=== PATIENT | female | born 1955 | race Caucasian/White ===

== ENCOUNTER 2018-01-22 17:54 | Emergency (ER) | payer OTHER ==
--- NOTE | 2018-01-22 19:32 | ER Document Report ---
ED Medical Screen (RME) - General Chief Complaint: Abdominal Pain Stated Complaint: VOMITING, TROUBLE BREATHING Time Seen by Provider: 01/22/18 19:24 Notes: [age]-year-old female with history that sounds like chronic gastroesophageal reflux which she takes Pepcid for. She reports that she had a ham sandwich at 1 :30 PM today. At 4 PM she tried to eat supper and it felt like the food stuck in her distal esophageal region. She eventually vomited up the same food she is swallowed. Since then anything she tries to swallow comes back up including sips of water. I have greeted and performed a rapid initial assessment of this patient. A comprehensive ED assessment and evaluation of the patient, analysis of test results and completion of the medical decision making process will be conducted by additional ED providers. TRAVEL OUTSIDE OF THE [place] IN LAST 30 DAYS: No - Related Data Allergies/Adverse Reactions: No Known Drug Allergies Allergy (Unknown, Verified 09/04/13 11:54) SOME ORAL ANTIBIOTIC Allergy (Severe, Uncoded 09/04/13 10:55) RASH Past Medical History - Past Medical History Cardiac Medical History: Reports: Hx Hypertension Denies: Hx Coronary Artery Disease - HIGH CHOLESTEROL, Hx Heart Attack Pulmonary Medical History: Denies: Hx Asthma, Hx Bronchitis, Hx COPD, Hx Pneumonia Neurological Medical History: Denies: Hx Cerebrovascular Accident, Hx Seizures Musculoskeltal Medical History: Denies Hx Arthritis - Immunizations Hx Diphtheria, Pertussis, Tetanus Vaccination: No - UNK Physical Exam - Vital signs Vitals: Temp Pulse Resp BP Pulse Ox 98.3 F 103 H 16 148/68 H 99 01/22/18 18:37 01/22/18 18:37 01/22/18 18:37 01/22/18 18:37 01/22/18 18:37 Course - Vital Signs Vital signs: Temp Pulse Resp BP Pulse Ox 98.3 F 103 H 16 148/68 H 99 01/22/18 18:37 01/22/18 18:37 01/22/18 18:37 01/22/18 18:37 01/22/18 18:37 Doctor's Discharge - Discharge Referrals: KALPESH LOPEZ, LEONIDAS [Primary Care Provider] - Follow up as needed
--- NOTE | 2018-01-22 20:13 | ER Document Report ---
ED GI/ - General Chief Complaint: Abdominal Pain Stated Complaint: VOMITING, TROUBLE BREATHING Time Seen by Provider: 01/22/18 19:24 Notes: Patient is a 62-year-old female that comes to the emergency department for chief complaint of possible obstructive esophagus. She states that at 130 she ate a ham sandwich, she tried to eat again (despite feeling like something got stuck in her lower esophagus) at 4 PM and vomited the food contents back up. She states that she has tried to drink milk and water and has vomited both of those things back up. Denies history of obstruction, she does have a history of bad reflux disease, takes 40 mg of Pepcid twice a day on average and regularly has symptoms of dyspepsia. Denies ever having an endoscopy, denies any surgeries except orthopedic surgeries, denies any medications otherwise. Drinks occasional alcohol, denies smoking or street drugs. TRAVEL OUTSIDE OF THE [place] IN LAST 30 DAYS: No - Related Data Allergies/Adverse Reactions: No Known Drug Allergies Allergy (Unknown, Verified 09/04/13 11:54) SOME ORAL ANTIBIOTIC Allergy (Severe, Uncoded 09/04/13 10:55) RASH Past Medical History - General Information source: Patient - Social History Smoking Status: Never Smoker Frequency of alcohol use: None Drug Abuse: None Lives with: Family Family History: Reviewed & Not Pertinent Patient has suicidal ideation: No Patient has homicidal ideation: No - Past Medical History Cardiac Medical History: Reports: Hx Hypertension Denies: Hx Coronary Artery Disease - HIGH CHOLESTEROL, Hx Heart Attack Pulmonary Medical History: Denies: Hx Asthma, Hx Bronchitis, Hx COPD, Hx Pneumonia Neurological Medical History: Denies: Hx Cerebrovascular Accident, Hx Seizures Renal/ Medical History: Denies: Hx Peritoneal Dialysis Musculoskeletal Medical History: Denies Hx Arthritis Past Surgical History: Reports: Hx Orthopedic Surgery - Immunizations Hx Diphtheria, Pertussis, Tetanus Vaccination: No - UNK Review of Systems - Review of Systems Constitutional: No symptoms reported EENT: No symptoms reported Cardiovascular: No symptoms reported Respiratory: No symptoms reported Gastrointestinal: See HPI Genitourinary: No symptoms reported Female Genitourinary: No symptoms reported Musculoskeletal: No symptoms reported Skin: No symptoms reported Hematologic/Lymphatic: No symptoms reported Neurological/Psychological: No symptoms reported Physical Exam - Vital signs Vitals: Temp Pulse Resp BP Pulse Ox 98.3 F 103 H 16 148/68 H 99 01/22/18 18:37 01/22/18 18:37 01/22/18 18:37 01/22/18 18:37 01/22/18 18:37 - Notes Notes: GENERAL: Alert, interacts well. No acute distress. HEAD: Normocephalic, atraumatic. EYES: Pupils equal, round, and reactive to light. Extraocular movements intact. ENT: Oral mucosa moist, tongue midline. Oropharynx unremarkable. Airway patent. Nares patent, no nasal septal hematoma, TM's intact. NECK: Full range of motion. Supple. Trachea midline. LUNGS: Clear to auscultation bilaterally, no wheezes, rales, or rhonchi. No respiratory distress. HEART: Regular rate and rhythm. No murmur ABDOMEN: Soft, non-tender. Non-distended. Bowel sounds present in all 4 quadrants. GENITOURINARY: Deferred EXTREMITIES: Moves all 4 extremities spontaneously. No edema, normal radial and dorsalis pedis pulses bilaterally. No cyanosis. BACK: no cervical, thoracic, lumbar midline tenderness. No saddle anesthesia, normal distal neurovascular exam. NEUROLOGICAL: Alert and oriented x3. Normal speech. [cranial nerves II through XII grossly intact]. PSYCH: Normal affect, normal mood. SKIN: Warm, dry, normal turgor. No rashes or lesions noted. Course - Re-evaluation Re-evalutation: In the room patient drank water but then vomited pure water out. Appears to be completely obstructed. Test had been ordered from triage, this is a modified barium swallow (patient was given barium and then a chest x-ray was performed). I do not see any contrast proceeding into the stomach, appears to be just a column of barium contrast on the image. Report pending. Patient given glucagon. After 40 minutes patient has still not had any results from the glucagon. Report reading very little contrast passing through the GE junction. Almost complete obstruction. Patient unable to tolerate fluids. I called and spoke with Dr. Morales, unfortunately he is unable to perform endoscopy with food bolus impaction removal. Called [facility] for transfer for patient, patient refers this location after discussion, will transfer because we lack GI coverage or the ability to perform the needed procedure. Discussed with Dr. Wood. 01/22/18 22:[address] Gandhi, laser beam color scanner operator, he will accept patient, patient will be transferred ED to ED and had the procedure performed there. Patient is in full agreement with this plan. - Vital Signs Vital signs: Temp Pulse Resp BP Pulse Ox 98.3 F 103 H 16 148/68 H 99 01/22/18 18:37 01/22/18 18:37 01/22/18 18:37 01/22/18 18:37 01/22/18 18:37 Discharge - Discharge Clinical Impression: Esophageal obstruction due to food impaction Condition: Stable Disposition: [facility] Referrals: KALPESH LOPEZ NP [ALLIED HEALTH PROFESSIONAL] - Follow up as needed
[2018-01-22] MEDS ORDERED: GLUCAGON,HUMAN RECOMB 1 MG INJ SUBCUT ONE (21:08)
[2018-01-22] MEDS ORDERED: GLUCAGON,HUMAN RECOMB 1 MG INJ IV ONE (21:14)
--- NOTE | 2018-01-22 21:34 | RADIOLOGY REPORT (SQ) ---
EXAM DESCRIPTION: XR CHEST 1 VIEW COMPLETED DATE/TME: 01/22/2018 19:47 CLINICAL HISTORY: 62 years, Female, Distal esophageal obstruction COMPARISON: EXAM DESCRIPTION: CLINICAL HISTORY: Distal esophageal obstruction COMPARISON: None. FINDINGS: Single view of the chest is submitted. Contrast in the esophagus demonstrates no significant narrowing at the mid or proximal esophagus. A small amount is seen beyond the GE junction Cardiac silhouette is normal. No focal parenchymal or pleural disease. No acute bony abnormality. There is no significant pulmonary vascular engorgement. IMPRESSION: No proximal or mid esophageal stricture is identified. However only a very small amount of contrast traverses the GE junction. Further evaluation is recommended. No evidence of acute cardiopulmonary disease. NUMBER OF VIEWS: TECHNIQUE: LIMITATIONS: None. FINDINGS: IMPRESSION: 2010 [employer]- All Rights Reserved
[2018-01-23 00:46] VITALS: BP 120/61
== END 2018-01-23 00:46 | disposition short-term general hospital (02) ==
LOC: ER 17:54
DX: K22.2 Esophageal obstruction (principal); R10.9 Unspecified abdominal pain; R11.10 Vomiting, unspecified; I10 Essential (primary) hypertension
CPT/HCPCS: 99285; 96374; 71045; J1610